=== PATIENT | male | born 1945 | race Caucasian/White ===

== ENCOUNTER 2019-09-29 00:35 | Emergency (ER) | payer MEDICARE, OTHER ==
--- NOTE | 2019-09-29 02:12 | EDM.PDOC ---
ED HPI GENERAL MEDICAL PROBLEM - General Chief Complaint: Genitourinary Problem Stated Complaint: POST BLADDER SURGERY/BLOOD IN URINE Time Seen by Provider: 09/29/19 01:15 Source of Information: Reports: Patient, RN Notes Reviewed History Limitations: Reports: No Limitations, Intoxication - History of Present Illness INITIAL COMMENTS - FREE TEXT/NARRATIVE: ED with c/o urinary frequency pain, burning, blood in urine. Up every hour last night. Blood just noticed tonight. Urine pink tinged. Feels like emmptying but urge fto go immediately after voiding. No fever chills or back pain. Recent cystoscopy on Monday for microscopic hematuria. No hx of previous UTI's. No nausea or vomiting. Bladder Pain Score (Numeric/FACES): 7 - Related Data Allergies Allergy/AdvReac Type Severity Reaction Status Date / Time atorvastatin calcium Allergy Cannot Verified 09/29/19 01:02 [From Lipitor] Remember levofloxacin [From Levaquin] Allergy Rash Verified 09/29/19 01:02 pantoprazole sodium Allergy Cannot Verified 09/29/19 01:02 [From Protonix] Remember Penicillins Allergy Cannot Verified 09/29/19 01:02 Remember pravastatin [From Pravachol] Allergy Muscle Verified 09/29/19 01:02 Aches Shellfish Allergy Cannot Uncoded 09/29/19 01:02 Remember Home Meds: Home Meds Aspirin [Sarah Chewable] 81 mg PO DAILY 04/18/13 [History] Chlorthalidone 25 mg PO DAILY 04/18/13 [History] Insulin Glargine,Hum.Rec.Anlog [Lantus Solostar] 42 units SQ BID 04/18/13 [ History] Levothyroxine 137 mcg PO DAILY 04/18/13 [History] Losartan [Cozaar] 100 mg PO DAILY 04/18/13 [History] Metoprolol Succinate [Toprol XL 100mg] 100 mg PO DAILY 04/18/13 [History] metFORMIN HCl [Metformin HCl] 750 mg PO BIDMEALS 10/05/18 [History] Dulaglutide [Trulicity] 1.5 mg SQ WEEKLY 09/29/19 [History] Famotidine [Pepcid] 20 mg PO BID 09/29/19 [History] Glimepiride [Amaryl] 4 mg PO ACBREAKFAST 09/29/19 [History] Simvastatin 20 mg PO BEDTIME 09/29/19 [History] calcitrioL [Rocaltrol] 0.25 mcg PO DAILY 09/29/19 [History] Social & Family History - Family History Family Medical History: Noncontributory - Tobacco Use Smoking Status *Q: Never Smoker Second Hand Smoke Exposure: No - Caffeine Use Caffeine Use: Reports: None - Recreational Drug Use Recreational Drug Use: No ED ROS GENERAL - Review of Systems Review Of Systems: Comprehensive ROS is negative, except as noted in HPI. ED EXAM, GI/ABD - Physical Exam Exam: See Below Exam Limited By: No Limitations General Appearance: Alert, No Apparent Distress Eyes: Bilateral: Normal Appearance Ears: Normal External Exam, Normal Canal, Normal TMs Nose: Normal Inspection Throat/Mouth: Normal Inspection, Normal Lips, Normal Voice Head: Atraumatic, Normocephalic Neck: Normal Inspection Respiratory/Chest: No Respiratory Distress, Lungs Clear, Normal Breath Sounds Cardiovascular: Regular Rate, Rhythm, No Edema GI/Abdominal Exam: Normal Bowel Sounds, Soft, Non-Tender Back Exam: No: CVA Tenderness (L), CVA Tenderness (R) Extremities: Normal Inspection Neurological: Alert, Oriented, Normal Cognition Psychiatric: Normal Affect Skin Exam: Warm, Dry, Intact Course - Vital Signs Last Recorded V/S: Last Vital Signs Temp 98.8 F 09/29/19 01:02 Pulse 75 09/29/19 01:02 Resp 16 09/29/19 01:02 BP 182/72 H 09/29/19 01:02 Pulse Ox 95 09/29/19 01:02 - Orders/Labs/Meds Orders: Active Orders 24 hr Category Date Time Status CULTURE URINE [RM] Urgent Lab 09/29/19 02:04 Received Labs: Laboratory Tests 09/29/19 Range/Units 02:04 Urine Color Brown (YELLOW) Urine Appearance Turbid (CLEAR) Urine pH 5.0 (5.0-9.0) Ur Specific [place] 1.020 (1.005-1.030) Urine Protein >=300 H (NEGATIVE) Urine Glucose (UA) Negative (NEGATIVE) Urine Ketones Trace H (NEGATIVE) Urine Occult Blood Large H (NEGATIVE) Urine Nitrite Negative (NEGATIVE) Urine Bilirubin Moderate H (NEGATIVE) Urine Urobilinogen 1.0 (0.2-1.0) mg/dL Ur Leukocyte Esterase Large H (NEGATIVE) Urine RBC 75-100 H /HPF Urine WBC Packed H (0-5/HPF) /HPF Ur Epithelial Cells Moderate H (NOT SEEN) /HPF Urine Bacteria Many H (0-FEW/HPF) /HPF Meds: Medications Discontinued Medications Generic Name Dose Route Start Last Admin Trade Name Loida PRN Reason Stop Dose Admin Nitrofurantoin Macrocrystals 100 mg 09/29/19 02:22 09/29/19 02:26 Macrobid PO 09/29/19 02:23 100 mg ONETIME ONE Administration Phenazopyridine HCl 190 mg 09/29/19 02:20 09/29/19 02:26 Urinary Pain Relief PO 09/29/19 02:21 190 mg ONETIME ONE Administration Departure - Departure Time of Disposition: 02:24 Disposition: Home, Self-Care 01 Condition: Good Clinical Impression: UTI, Urinary tract infectious disease - Discharge Information *PRESCRIPTION DRUG MONITORING PROGRAM REVIEWED*: No *COPY OF PRESCRIPTION DRUG MONITORING REPORT IN PATIENT ROMA: No Instructions: Urinary Tract Infection, Adult Forms: ED Department Discharge Additional Instructions: macrobid 100mg one twice daily for 10 days pyridium 200mg every 8 hours as needed for bladder spasm increase fluids follow up if symptoms worsen fever, chills nausea, weakness Sepsis Event Note (ED) - Evaluation Sepsis Screening Result: No Definite Risk - Focused Exam Vital Signs: Vital Signs Temp Pulse Resp BP Pulse Ox 09/29/19 01:02 98.8 F 75 16 182/72 H 95 - My Orders Last 24 Hours: My Active Orders 09/29/19 02:04 CULTURE URINE [RM] Urgent - Assessment/Plan Last 24 Hours: My Active Orders 09/29/19 02:04 CULTURE URINE [RM] Urgent
[2019-09-29] MEDS ORDERED: Phenazopyridine 95 MG Tab PO ONE (02:20)
[2019-09-29] MEDS ORDERED: Nitrofurantoin Monohydrate/Macrocrystalline 100 MG Cap PO ONE (02:22)
== END 2019-09-29 02:31 | disposition home or self-care (01) ==
LOC: DL.ED 00:35
DX: N39.0 Urinary tract infection, site not specified (principal); Z88.8 Allergy status to other drugs, medicaments and biological substances; Z88.0 Allergy status to penicillin; Z91.013 Allergy to seafood; Z79.82 Long term (current) use of aspirin; Z79.899 Other long term (current) drug therapy
CPT/HCPCS: 81001; 87086; 87088; 87186; 99283; A9270

== ENCOUNTER 2019-12-10 00:47 | Emergency (ER) | payer MEDICARE, OTHER ==
--- NOTE | 2019-12-10 01:26 | CR ---
PROCEDURE INFORMATION: Exam: XR Chest, 1 View Exam date and time: 12/10/2019 1:01 AM Age: 74 years old Clinical indication: Chest pain TECHNIQUE: Imaging protocol: XR of the chest Views: 1 view. COMPARISON: No relevant prior studies available. FINDINGS: Lungs: Mild right perihilar and right lung base opacification. The right upper lung and left lung are clear. Pleural space: No pneumothorax. No significant pleural effusion. Heart/Mediastinum: Mild cardiomegaly. Other: Multiple monitoring leads overlie the thorax. Bones/joints: Moderate thoracic spondylosis. IMPRESSION: Mild right perihilar and right lung base opacification. Consider asymmetric edema and/or infiltrate. Correlate clinically
[2019-12-10 01:32] LABS: ANION GAP 11.9 mEq/L (7-13); CHLORIDE,CL 105 mmol/L (98-107); SODIUM,NA 144 mmol/L (136-145)
--- NOTE | 2019-12-10 01:32 | EDM.PDOC ---
ED HPI GENERAL MEDICAL PROBLEM - General Chief Complaint: Respiratory Problem Stated Complaint: SHORTNESS OF BREATH Time Seen by Provider: 12/10/19 01:15 Source of Information: Reports: Patient, RN, RN Notes Reviewed History Limitations: Reports: No Limitations - History of Present Illness INITIAL COMMENTS - FREE TEXT/NARRATIVE: Patient presents to ER with complaint of shortness of breath. Patient states he awakens in the night startled and cannot catch his breath. Patient states this is been going on for quite some time, but tonight he had more difficulty catching his breath, and became more anxious about it. 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 Gallbladder and appendix were removed at that time as well. Patient states he has been having decent bowel movements, and appetite has been good. Patient denies shortness of breath on a regular basis. Patient states he has been up and ambulating frequently, but seems to get winded more easily. Patient states he thinks he has sleep apnea, but has never been tested. Patient does state his sleeping pattern has become worse since the surgery. Patient denies chest pains, or pains anywhere. Patient states he has been feeling well since his surgery. Patient states once he settled down, he was able to breathe easier. Onset: Gradual Associated Symptoms: Reports: No Other Symptoms - Related Data Allergies Allergy/AdvReac Type Severity Reaction Status Date / Time atorvastatin calcium Allergy Cannot Verified 12/10/19 01:09 [From Lipitor] Remember levofloxacin [From Levaquin] Allergy Rash Verified 12/10/19 01:09 pantoprazole sodium Allergy Cannot Verified 12/10/19 01:09 [From Protonix] Remember Penicillins Allergy Cannot Verified 12/10/19 01:09 Remember pravastatin [From Pravachol] Allergy Muscle Verified 12/10/19 01:09 Aches Shellfish Allergy Cannot Uncoded 12/10/19 01:09 Remember Home Meds: Home Meds Aspirin [Sarah Chewable] 81 mg PO DAILY 04/18/13 [History] Chlorthalidone 25 mg PO DAILY 04/18/13 [History] Insulin Glargine,Hum.Rec.Anlog [Lantus Solostar] 38 units SQ BID 04/18/13 [History] Levothyroxine 137 mcg PO DAILY 04/18/13 [History] Losartan [Cozaar] 100 mg PO DAILY 04/18/13 [History] Metoprolol Succinate [Toprol XL 100mg] 100 mg PO DAILY 04/18/13 [History] metFORMIN HCl [Metformin HCl] 750 mg PO BIDMEALS 10/05/18 [History] Dulaglutide [Trulicity] 1.5 mg SQ WEEKLY 09/29/19 [History] Famotidine [Pepcid] 20 mg PO BID 09/29/19 [History] Glimepiride [Amaryl] 4 mg PO ACBREAKFAST 09/29/19 [History] Simvastatin 20 mg PO BEDTIME 09/29/19 [History] calcitrioL [Rocaltrol] 0.25 mcg PO DAILY 09/29/19 [History] oxyCODONE 1 tab PO Q4H 12/10/19 [History] Past Medical History Cardiovascular History: 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 ED EXAM, GENERAL - Physical Exam Exam: See Below Exam Limited By: No Limitations General Appearance: Alert, WD/WN, No Apparent Distress, Anxious Eye Exam: Bilateral Eye: EOMI, Normal Inspection Ears: Normal External Exam, Hearing Grossly Normal Nose: Normal Inspection Throat/Mouth: Normal Inspection, Normal Voice, No Airway Compromise Head: Atraumatic, Normocephalic Neck: Normal Inspection, Supple, Non-Tender, Full Range of Motion Respiratory/Chest: No Respiratory Distress, No Accessory Muscle Use, Chest Non- Tender, Crackles (Bases bilaterally) Cardiovascular: Normal Peripheral Pulses, Regular Rate, Rhythm, No Edema, No Gallop, No JVD, No Rub, Systolic Murmur Peripheral Pulses: 2+: Radial (L), Radial (R) GI/Abdominal: Normal Bowel Sounds, Soft, Tender, Other (Healing incision from 13 November 2019 abdominal surgery) (Male) Exam: Deferred Rectal (Males) Exam: Deferred Back Exam: Normal Inspection, Full Range of Motion Extremities: Normal Inspection, Normal Range of Motion, Non-Tender, Normal Capillary Refill, No Pedal Edema Neurological: Alert, Oriented, CN II-XII Intact, Normal Cognition, Normal Gait, Normal Reflexes, No Motor/Sensory Deficits Psychiatric: Normal Affect, Normal Mood, Anxious Skin Exam: Warm, Dry, Intact, Normal Color, No Rash Lymphatic: No Adenopathy Course - Vital Signs Last Recorded V/S: Last Vital Signs Temp 97.4 F 12/10/19 01:01 Pulse 74 12/10/19 01:01 Resp 18 12/10/19 01:01 BP 153/62 H 12/10/19 01:01 Pulse Ox 98 12/10/19 01:01 - Orders/Labs/Meds Orders: Active Orders 24 hr Category Date Time Status EKG Documentation Completion [RC] STAT Care 12/10/19 00:58 Active Labs: Laboratory Tests 12/10/19 12/10/19 Range/Units 01:03 01:03 WBC 10.8 H (5.0-10.0) 10^3/uL RBC 4.35 L (4.6-6.2) 10^6/uL Hgb 13.3 L (14.0-18.0) g/dL Hct 40.3 (40.0-54.0) % MCV 92.6 (80-100) fL MCH 30.6 (27.0-34.0) pg MCHC 33.0 (33.0-35.0) g/dL Plt Count 201 (150-450) 10^3/uL Neut % (Auto) 51.9 (42.2-75.2) % Lymph % (Auto) 35.0 (20.5-50.1) % [place] % (Auto) 8.5 H (2-8) % Eos % (Auto) 4.3 H (1.0-3.0) % Baso % (Auto) 0.3 (0.0-1.0) % Sodium 144 (136-145) mmol/L Potassium 3.9 (3.5-5.1) mmol/L Chloride 105 (98-107) mmol/L Carbon Dioxide 31 (21-32) mmol/L Anion Gap 11.9 (7-13) mEq/L BUN 33 H (7-18) mg/dL Creatinine 1.68 H (0.70-1.30) mg/dL Est Cr Clr Drug Dosing 41.06 mL/min Estimated GFR (MDRD) 40 BUN/Creatinine Ratio 19.6 (No establ ref range) Glucose 90 (74-99) mg/dL Calcium 8.9 (8.5-10.1) mg/dL Total Bilirubin 0.5 (0.2-1.0) mg/dL AST 15 (15-37) U/L ALT 28 (16-63) U/L Alkaline Phosphatase 70 (46-116) U/L Troponin I < 0.017 (0.000-0.056) ng/mL B-Natriuretic Peptide 18 (0-100) pg/ml Total Protein 7.4 (6.4-8.2) g/dL Albumin 3.8 (3.4-5.0) g/dL Globulin 3.6 Albumin/Globulin Ratio 1.1 - Radiology Interpretation Free Text/Narrative:: Chest xray: PROCEDURE INFORMATION: Exam: XR Chest, 1 View Exam date and time: 12/10/2019 1:01 AM Age: 74 years old Clinical indication: Chest pain TECHNIQUE: Imaging protocol: XR of the chest Views: 1 view. COMPARISON: No relevant prior studies available. FINDINGS: Lungs: Mild right perihilar and right lung base opacification. The right upper lung and left lung are clear. Pleural space: No pneumothorax. No significant pleural effusion. Heart/Mediastinum: Mild cardiomegaly. Other: Multiple monitoring leads overlie the thorax. Bones/joints: Moderate thoracic spondylosis. IMPRESSION: Mild right perihilar and right lung base opacification. Consider asymmetric edema and/or infiltrate. Correlate clinically Thank you for allowing us to participate in the care of your patient. Dictated and Authenticated by: Johanny Faulkner MD 12/10/2019 1:26 AM Central Time ([place] & [place]) See rad report Departure - Departure Time of Disposition: 01:44 Disposition: Home, Self-Care 01 Condition: Fair Clinical Impression: Anxiety Pneumonia Qualifiers: Pneumonia type: due to unspecified organism Laterality: bilateral Lung location: lower lobe of lung Qualified Code(s): J18.9 - Pneumonia, unspecified organism - Discharge Information *PRESCRIPTION DRUG MONITORING PROGRAM REVIEWED*: No *COPY OF PRESCRIPTION DRUG MONITORING REPORT IN PATIENT ROMA: No Instructions: Shortness of Breath, Adult, [id number], Community-Acquired Pneumonia, Adult, [id number], Living With Anxiety Forms: ED Department Discharge Additional Instructions: Call your primary care provider's office tomorrow to discuss sleep study Rx: Azithromycin Return to the ER with any worsening of problems Follow-up with your primary care provider Sepsis Event Note (ED) - Evaluation Sepsis Screening Result: No Definite Risk - Focused Exam Vital Signs: Vital Signs Temp Pulse Resp BP Pulse Ox 12/10/19 01:01 97.4 F 74 18 153/62 H 98 - My Orders Last 24 Hours: My Active Orders 12/10/19 00:58 EKG Documentation Completion [RC] STAT - Assessment/Plan Last 24 Hours: My Active Orders 12/10/19 00:58 EKG Documentation Completion [RC] STAT
== END 2019-12-10 01:50 | disposition home or self-care (01) ==
LOC: DL.ED 00:47
DX: J18.9 Pneumonia, unspecified organism (principal); F41.9 Anxiety disorder, unspecified; Z88.1 Allergy status to other antibiotic agents; Z88.8 Allergy status to other drugs, medicaments and biological substances; Z88.0 Allergy status to penicillin; Z91.013 Allergy to seafood; Z79.82 Long term (current) use of aspirin; Z79.899 Other long term (current) drug therapy; Z87.891 Personal history of nicotine dependence
CPT/HCPCS: 36415; 71045; 80053; 83880; 84484; 85025; 93005; 99285-25

== ENCOUNTER 2019-12-10 08:46 | Emergency (ER) | payer MEDICARE, OTHER ==
--- NOTE | 2019-12-10 09:30 | EDM.PDOC ---
ED HPI GENERAL MEDICAL PROBLEM - General Chief Complaint: Respiratory Problem Time Seen by Provider: 12/10/19 09:55 Source of Information: Reports: Patient History Limitations: Reports: No Limitations - History of Present Illness INITIAL COMMENTS - FREE TEXT/NARRATIVE: This 74 yo male patient reports to the ED due to increased shortness of breath. The patient was seen in the ED at 0100 this morning with shortness of breath, was diagnosed with pneumonia and discharged with antibiotics. The patient called Dr. Shipman's office this morning reporting continued shortness of breath and was advised to come back to the ED. Dr. Shipman called the ED prior to the patient's arrival with concerns that the patient may have a PE due to having surgery about 2 weeks ago for a tumor on his small intestine (removed appendix and gallbladder during the surgery). The patient reports he has been noticing increased shortness of breath during the night when he wakes up from sleep. The patient denies any shortness of breath in the daytime and no increased shortness of breath with exertion. The patient reports he was advised that he may have some sleep apnea during the visit in [facility]. The patient does not have a CPAP. Onset: Unknown/Unsure Duration: Day(s):, Intermittent (During sleep) Location: Reports: Chest Quality: Reports: Other Severity: Moderate Improves with: Reports: None Worsens with: Reports: None Context: Reports: Other Associated Symptoms: Reports: Shortness of Breath - Related Data Allergies Allergy/AdvReac Type Severity Reaction Status Date / Time atorvastatin calcium Allergy Cannot Verified 12/10/19 09:30 [From Lipitor] Remember levofloxacin [From Levaquin] Allergy Rash Verified 12/10/19 09:30 pantoprazole sodium Allergy Cannot Verified 12/10/19 09:30 [From Protonix] Remember Penicillins Allergy Cannot Verified 12/10/19 09:30 Remember pravastatin [From Pravachol] Allergy Muscle Verified 12/10/19 09:30 Aches Shellfish Allergy Cannot Uncoded 12/10/19 01:09 Remember Home Meds: Home Meds Aspirin [Sarah Chewable] 81 mg PO DAILY 04/18/13 [History] Chlorthalidone 25 mg PO DAILY 04/18/13 [History] Insulin Glargine,Hum.Rec.Anlog [Lantus Solostar] 24 units SQ BID 04/18/13 [History] Levothyroxine 137 mcg PO DAILY 04/18/13 [History] Losartan [Cozaar] 100 mg PO DAILY 04/18/13 [History] Metoprolol Succinate [Toprol XL 100mg] 100 mg PO DAILY 04/18/13 [History] metFORMIN HCl [Metformin HCl] 750 mg PO BIDMEALS 10/05/18 [History] Dulaglutide [Trulicity] 1.5 mg SQ WEEKLY 09/29/19 [History] Famotidine [Pepcid] 20 mg PO BID 09/29/19 [History] Glimepiride [Amaryl] 4 mg PO ACBREAKFAST 09/29/19 [History] Simvastatin 20 mg PO BEDTIME 09/29/19 [History] calcitrioL [Rocaltrol] 0.25 mcg PO DAILY 09/29/19 [History] oxyCODONE 1 tab PO Q4H 12/10/19 [History] Past Medical History Cardiovascular History: Reports: Heart Murmur Gastrointestinal History: Reports: Other (See Below) Other Gastrointestinal History: Colon Ca Oncologic (Cancer) History: Reports: Colon - Past Surgical History GI Surgical History: Reports: Colon Social & Family History - Family History Family Medical History: Noncontributory - Caffeine Use Caffeine Use: Reports: None ED ROS GENERAL - Review of Systems Review Of Systems: Comprehensive ROS is negative, except as noted in HPI. ED EXAM, GENERAL - Physical Exam Exam: See Below Exam Limited By: No Limitations General Appearance: Alert, WD/WN, Anxious, Moderate Distress Eye Exam: Bilateral Eye: EOMI, Normal Inspection, PERRL Ears: Other (Bilateral hearing aids not removed) Nose: Normal Inspection, Normal Mucosa, No Blood Throat/Mouth: Normal Inspection, Normal Lips, Normal Teeth, Normal Gums, Normal Oropharynx, Normal Voice, No Airway Compromise Head: Atraumatic, Normocephalic Neck: Normal Inspection, Supple, Non-Tender, Full Range of Motion Respiratory/Chest: No Respiratory Distress, Lungs Clear, Normal Breath Sounds, No Accessory Muscle Use, Chest Non-Tender Cardiovascular: Normal Peripheral Pulses, Regular Rate, Rhythm, No Edema, No Gallop, No JVD, No Murmur, No Rub GI/Abdominal: Normal Bowel Sounds, Soft, Non-Tender, No Organomegaly, No Distention, No Abnormal Bruit, No Mass (Male) Exam: Deferred Rectal (Males) Exam: Deferred Back Exam: Normal Inspection, Full Range of Motion, NT Extremities: Normal Inspection, Normal Range of Motion, Non-Tender, Normal Capillary Refill, No Pedal Edema Neurological: Alert, Oriented, CN II-XII Intact, Normal Cognition, Normal Gait, Normal Reflexes, No Motor/Sensory Deficits Psychiatric: Normal Affect, Normal Mood Skin Exam: Warm, Dry, Intact, Normal Color, No Rash Lymphatic: No Adenopathy Course - Vital Signs Last Recorded V/S: Last Vital Signs Temp 36.7 C 12/10/19 09:25 Pulse 85 12/10/19 09:25 Resp 20 12/10/19 09:25 BP 144/55 H 12/10/19 09:25 Pulse Ox 99 12/10/19 09:25 - Orders/Labs/Meds Orders: Active Orders 24 hr Category Date Time Status EKG Documentation Completion [RC] STAT Care 12/10/19 08:32 Active Labs: Laboratory Tests 12/10/19 12/10/19 12/10/19 Range/Units 08:53 09:38 09:38 WBC 8.1 (5.0-10.0) 10^3/uL RBC 4.62 (4.6-6.2) 10^6/uL Hgb 14.1 (14.0-18.0) g/dL Hct 41.9 (40.0-54.0) % MCV 90.7 (80-100) fL MCH 30.5 (27.0-34.0) pg MCHC 33.7 (33.0-35.0) g/dL Plt Count 199 (150-450) 10^3/uL Neut % (Auto) 70.1 (42.2-75.2) % Lymph % (Auto) 21.0 (20.5-50.1) % [place] % (Auto) 6.3 (2-8) % Eos % (Auto) 2.4 (1.0-3.0) % Baso % (Auto) 0.2 (0.0-1.0) % PT (9.0-12.0) SEC INR (0.9-1.2) D-Dimer, Quantitative (0-400) ng/mL Sodium 142 (136-145) mmol/L Potassium 3.6 (3.5-5.1) mmol/L Chloride 102 (98-107) mmol/L Carbon Dioxide 25 (21-32) mmol/L Anion Gap 18.6 H (7-13) mEq/L BUN 31 H (7-18) mg/dL Creatinine 1.61 H (0.70-1.30) mg/dL Est Cr Clr Drug Dosing 42.84 mL/min Estimated GFR (MDRD) 42 BUN/Creatinine Ratio 19.3 (No establ ref range) Glucose 160 H (74-99) mg/dL Lactic Acid (0.4-2.0) mmol/L Calcium 9.1 (8.5-10.1) mg/dL Total Bilirubin 0.7 (0.2-1.0) mg/dL AST 18 (15-37) U/L ALT 31 (16-63) U/L Alkaline Phosphatase 68 (46-116) U/L Troponin I < 0.017 (0.000-0.056) ng/mL Total Protein 7.7 (6.4-8.2) g/dL Albumin 3.9 (3.4-5.0) g/dL Globulin 3.8 Albumin/Globulin Ratio 1.0 COVID-19 (NILDA) Negative (NEGATIVE) 12/10/19 12/10/19 Range/Units 09:38 09:38 WBC (5.0-10.0) 10^3/uL RBC (4.6-6.2) 10^6/uL Hgb (14.0-18.0) g/dL Hct (40.0-54.0) % MCV (80-100) fL MCH (27.0-34.0) pg MCHC (33.0-35.0) g/dL Plt Count (150-450) 10^3/uL Neut % (Auto) (42.2-75.2) % Lymph % (Auto) (20.5-50.1) % [place] % (Auto) (2-8) % Eos % (Auto) (1.0-3.0) % Baso % (Auto) (0.0-1.0) % PT 10.1 (9.0-12.0) SEC INR 1.1 (0.9-1.2) D-Dimer, Quantitative 1750 H (0-400) ng/mL Sodium (136-145) mmol/L Potassium (3.5-5.1) mmol/L Chloride (98-107) mmol/L Carbon Dioxide (21-32) mmol/L Anion Gap (7-13) mEq/L BUN (7-18) mg/dL Creatinine (0.70-1.30) mg/dL Est Cr Clr Drug Dosing mL/min Estimated GFR (MDRD) BUN/Creatinine Ratio (No establ ref range) Glucose (74-99) mg/dL Lactic Acid 3.2 H* (0.4-2.0) mmol/L Calcium (8.5-10.1) mg/dL Total Bilirubin (0.2-1.0) mg/dL AST (15-37) U/L ALT (16-63) U/L Alkaline Phosphatase (46-116) U/L Troponin I (0.000-0.056) ng/mL Total Protein (6.4-8.2) g/dL Albumin (3.4-5.0) g/dL Globulin Albumin/Globulin Ratio COVID-19 (NILDA) (NEGATIVE) Meds: Medications Discontinued Medications Generic Name Dose Route Start Last Admin Trade Name Freq PRN Reason Stop Dose Admin Iopamidol 100 ml 12/10/19 10:27 12/10/19 11:13 Isovue-370 (76%) IVPUSH 12/10/19 10:28 75 ml ONETIME ONE Administration Departure - Departure Time of Disposition: 12:38 Disposition: Home, Self-Care 01 Condition: Fair Clinical Impression: Shortness of breath, Nocturnal dyspnea - Discharge Information *PRESCRIPTION DRUG MONITORING PROGRAM REVIEWED*: Not Applicable *COPY OF PRESCRIPTION DRUG MONITORING REPORT IN PATIENT ROMA: Not Applicable Instructions: Shortness of Breath, Adult Forms: ED Department Discharge Care Plan Goals: The patient was advised of the examination, lab, EKG and CT results during the visit. The patient was encouraged to follow-up with his primary care facility for a sleep study. The patient should continue with his current medications as prescribed. If the patient has any additional symptoms or concerns, the patient should either return to the emergency department or visit his primary care facility. Sepsis Event Note (ED) - Focused Exam Vital Signs: Vital Signs Temp Pulse Resp BP Pulse Ox 12/10/19 09:25 36.7 C 85 20 144/55 H 99 - My Orders Last 24 Hours: My Active Orders 12/10/19 08:32 EKG Documentation Completion [RC] STAT - Assessment/Plan Last 24 Hours: My Active Orders 12/10/19 08:32 EKG Documentation Completion [RC] STAT
[2019-12-10 10:09] LABS: ANION GAP 18.6 mEq/L (7-13); CHLORIDE,CL 102 mmol/L (98-107); SODIUM,NA 142 mmol/L (136-145)
[2019-12-10] MEDS ORDERED: Iopamidol 755 Mg/ML 100 ML Bottle IVPUSH ONE (10:27)
--- NOTE | 2019-12-10 12:30 | CT ---
PROCEDURE INFORMATION: Exam: CT Chest With Contrast Exam date and time: 12/10/2019 10:55 AM Age: 74 years old Clinical indication: Shortness of breath; Prior surgery; Surgery date: <1 month; Surgery type: Colon resection; Patient HX: Lung and colon CA TECHNIQUE: Imaging protocol: Computed tomography of the chest with intravenous contrast. Radiation optimization: All CT scans at this facility use at least one of these dose optimization techniques: automated exposure control; mA and/or kV adjustment per patient size (includes targeted exams where dose is matched to clinical indication); or iterative reconstruction. Contrast material: ISOVUE 370; Contrast volume: 75 ml; Contrast route: INTRAVENOUS (IV); COMPARISON: 1. CR Chest 1V Frontal 12/10/2019 1:01 AM 2. MR - Abdomen w wo Cont 09/16/2019 7:52:[address] - Abdomen Pelvis w wo Cont 09/05/2019 8:13:[address] - Soft Tissue Neck w Cont 10/09/2018 1:23:55 PM FINDINGS: Lungs: There is continued discoid atelectasis or scar in the left lower lobe with mild associated bronchiectasis. This may represent traction bronchiectasis. There are multiple small 1-3 mm subpleural pulmonary nodules in the left lower lobe peripherally, a few of which may be new since 09/05/2019. Pleural space: Unremarkable. No pneumothorax. No pleural effusion. Heart: There are calcifications at the aortic valve and less so at the mitral valve annulus. Pulmonary arteries: Central pulmonary arteries are patent and unremarkable. Aorta: Mildly tortuous thoracic aorta without aneurysm or dissection. Lymph nodes: Unremarkable. No enlarged lymph nodes. Liver: There is a 5.7 x 4.3 cm hypodense lesion with somewhat targetoid appearance, with central more pronounced decreased density. However, Hounsfield units range from -2 to 10 suggesting either a cystic or necrotic lesion. Curvilinear densities at the medial margin of this lesion are new. Question embolization coils versus dystrophic calcification. This could reflect the prior hypervascular lesion post treatment. Two additional lesions in the right posterior superior liver are hypodense measuring 2.5 and 2.1 cm correspond to prior smaller hypervascular lesions on the CT from 09/05/2019. The 2.5 cm lesion has Hounsfield units less than 20, and the 2.1 cm lesion has Hounsfield units of 25. These are of uncertain etiology, not clearly evident on pre contrast images from CT abdomen and pelvis 09/05/2019. Bones/joints: No acute osseous abnormality. 7 mm corticated body anterior to the right humeral head. Degenerative changes in the thoracic and lower cervical spine. Soft tissues: Unremarkable. IMPRESSION: 1. 1 mm soft tissue density subpleural pulmonary nodules in the left lower lobe, a few of which are likely new compared to 09/05/2019. These nodules are indeterminate. Fleischner follow up recommendations for incidental nodules are not indicated. Follow up per patient's medical condition. 2. Three hypodense hepatic lesions at the site of the prior smaller hypervascular lesions in the right liver, 1 which has curvilinear radiodense structures at its medial margin which may represent embolization coils or dystrophic calcification. These lesions are indeterminate, but the possibility of treated metastases is raised. Recommend correlation with patient history and procedures. Consider dedicated liver MR or dedicated liver CT for further characterization. 3. Traction bronchiectasis in the left lower lobe with adjacent discoid atelectasis or scar.
== END 2019-12-10 13:00 | disposition home or self-care (01) ==
LOC: DL.ED 08:46
DX: R06.02 Shortness of breath (principal); Z20.828 Contact with and (suspected) exposure to other viral communicable diseases; Z88.8 Allergy status to other drugs, medicaments and biological substances; Z88.0 Allergy status to penicillin; Z88.1 Allergy status to other antibiotic agents; Z91.013 Allergy to seafood; Z79.82 Long term (current) use of aspirin; Z79.899 Other long term (current) drug therapy
CPT/HCPCS: 36415; 71260; 80053; 83605; 84484; 85025; 85379; 85610; 93005; 99285; Q9967; U0002; 99283

== ENCOUNTER 2021-02-21 08:57 | Emergency (ER) | payer MEDICARE, OTHER ==
[2021-02-21] MEDS ORDERED: Lidocaine 5% Oint 35.44 GM Tube TOP ONE (09:38)
[2021-02-21] MEDS ORDERED: Dexamethasone 4 MG/ML SDV IM ONE (09:39)
--- NOTE | 2021-02-21 09:47 | EDM.PDOC ---
Scribed by Jeri Ferrara 02/21/21 0935 for Felix Rowe MD ED HPI GENERAL MEDICAL PROBLEM - General Chief Complaint: Back Pain or Injury Stated Complaint: WRENCHED BACK Time Seen by Provider: 02/21/21 09:17 Source of Information: Reports: Patient, RN, RN Notes Reviewed History Limitations: Reports: No Limitations - History of Present Illness INITIAL COMMENTS - FREE TEXT/NARRATIVE: Patient presents to ED by POV with complaint of twisting wrong x1 week ago, went to chiropractor and felt better until he twisted wrong again last night. The pain was in lower back and on the right side. He denies fall, lifting or any other injury. Pt states that if he rotates or moves that right low back has a sudden "catch" with sharp pain and severe muscle spasms. Denies radiating pain, saddle area numbness, loss of bowel or bladder control, or motor weakness. Onset: Gradual Duration: Getting Worse Location: Reports: Back Quality: Reports: Ache, Same as Previous Episode Severity: Severe Improves with: Reports: Immobilization, Rest Worsens with: Reports: Movement Associated Symptoms: Reports: No Other Symptoms Lower Back Pain Score (Numeric/FACES): 10 - Related Data Allergies Allergy/AdvReac Type Severity Reaction Status Date / Time atorvastatin calcium Allergy Cannot Verified 02/21/21 09:20 [From Lipitor] Remember levofloxacin [From Levaquin] Allergy Rash Verified 02/21/21 09:20 pantoprazole sodium Allergy Cannot Verified 02/21/21 09:20 [From Protonix] Remember Penicillins Allergy Cannot Verified 02/21/21 09:20 Remember pravastatin [From Pravachol] Allergy Muscle Verified 02/21/21 09:20 Aches Shellfish Allergy Cannot Uncoded 02/21/21 09:20 Remember Home Meds: Home Meds Aspirin [Sarah Chewable] 81 mg PO DAILY 04/18/13 [History] Chlorthalidone 25 mg PO DAILY 04/18/13 [History] Insulin Glargine,Hum.Rec.Anlog [Lantus Solostar] 24 units SQ BID 04/18/13 [History] Levothyroxine 137 mcg PO DAILY 04/18/13 [History] Losartan [Cozaar] 100 mg PO DAILY 04/18/13 [History] Metoprolol Succinate [Toprol XL 100mg] 100 mg PO DAILY 04/18/13 [History] metFORMIN HCl [Metformin HCl] 750 mg PO BIDMEALS 10/05/18 [History] Dulaglutide [Trulicity] 1.5 mg SQ WEEKLY 09/29/19 [History] Famotidine [Pepcid] 20 mg PO BID 09/29/19 [History] Glimepiride [Amaryl] 4 mg PO ACBREAKFAST 09/29/19 [History] Simvastatin 20 mg PO BEDTIME 09/29/19 [History] calcitrioL [Rocaltrol] 0.25 mcg PO DAILY 09/29/19 [History] oxyCODONE 1 tab PO Q4H 12/10/19 [History] Past Medical History Cardiovascular History: Reports: Heart Murmur Respiratory History: Reports: None Gastrointestinal History: Reports: Other (See Below) Other Gastrointestinal History: Colon Ca Genitourinary History: Reports: None Musculoskeletal History: Reports: Back Pain, Chronic, Osteoarthritis Neurological History: Reports: None Psychiatric History: Reports: None Endocrine/Metabolic History: Reports: Diabetes, Type II, Hypothyroidism Hematologic History: Reports: None Immunologic History: Reports: None Oncologic (Cancer) History: Reports: Colon Dermatologic History: Reports: None - Infectious Disease History Infectious Disease History: Reports: None - Past Surgical History GI Surgical History: Reports: Colon, Small Bowel Social & Family History - Family History Family Medical History: No Pertinent Family History - Caffeine Use Caffeine Use: Reports: None - Living Situation & Occupation Occupation: Retired ED ROS GENERAL - Review of Systems Review Of Systems: Comprehensive ROS is negative, except as noted in HPI. ED EXAM,LOWER BACK PAIN/INJURY - Physical Exam Exam: See Below Exam Limited By: No Limitations General Appearance: Alert, WD/WN, No Apparent Distress Head: Atraumatic, Normocephalic Neck: Normal Inspection, Non-Tender, Full Range of Motion Respiratory/Chest: No Respiratory Distress Cardiovascular: Regular Rate, Rhythm GI/Abdominal: Normal Bowel Sounds, Soft, Non-Tender, Other (large vertical midline surgical scar) (Male) Exam: Deferred Rectal (Males) Exam: Deferred Back Exam: Decreased Range of Motion, Muscle Spasm (Right paraspinal lumbar region), Paraspinal Tenderness (Right lower lumbar region). No: CVA Tenderness (L), CVA Tenderness (R), Vertebral Tenderness Extremities: Normal Inspection, Normal Range of Motion, Non-Tender, No Pedal Edema, Normal Capillary Refill Neurological: Alert, Normal Mood/Affect, Normal Dorsiflexion, CN II-XII Intact, Normal Plantar Flexion, Normal Reflexes, No Motor/Sensory Deficits, Oriented x 3 Psychiatric: Normal Affect, Normal Mood Skin Exam: Warm, Dry, Intact, Normal Color, No Rash Course - Vital Signs Last Recorded V/S: Last Vital Signs Temp 97.8 F 02/21/21 09:20 Pulse 60 02/21/21 09:20 Resp 20 02/21/21 09:20 BP 146/60 H 02/21/21 09:20 Pulse Ox 95 02/21/21 09:20 - Orders/Labs/Meds Orders: Active Orders 24 hr Category Date Time Status Lumbar Spine 2 or 3V [CR] Stat Exams 02/21/21 09:22 Ordered Meds: Medications Discontinued Medications Generic Name Dose Route Start Last Admin Trade Name Иванq PRN Reason Stop Dose Admin Dexamethasone 8 mg 02/21/21 09:39 Dexamethasone 4 Mg/Ml Sdv IM 02/21/21 09:40 ONETIME ONE Diazepam 5 mg 02/21/21 09:37 Diazepam 10 Mg/2 Ml Syringe IM 02/21/21 09:38 ONETIME ONE Lidocaine HCl 30 gm 02/21/21 09:38 Lidocaine 5% Oint 35.44 Gm Tube TOP 02/21/21 09:39 ONETIME ONE - Radiology Interpretation Free Text/Narrative:: XR L-spine: no fractures, intervertebral lipping and spurring, see Rad. report. Departure - Departure Time of Disposition: 09:44 Disposition: Home, Self-Care 01 Condition: Good Clinical Impression: Lumbar paraspinal muscle spasm Acute low back pain Qualifiers: Back pain laterality: right Sciatica presence: without sciatica Qualified Code(s): M54.50 - Low back pain, unspecified - Discharge Information *PRESCRIPTION DRUG MONITORING PROGRAM REVIEWED*: No *COPY OF PRESCRIPTION DRUG MONITORING REPORT IN PATIENT ROMA: No Instructions: Acute Back Pain, Adult, Muscle Strain, [id number], Muscle Cramps and Spasms, [id number] Forms: ED Department Discharge Additional Instructions: Rx: Cyclobenzaprine 10mg Rx: Hydrocodone APAP 5mg/325mg *Do not drive while under the influence of either or these medications. Lidocaine Ointment 5% Apply to area of back pain or spasm every 4 to 6 hours as needed. Use heating pad or moist hot packs to area of back pain. Follow up in clinic with your primary doctor or chiropractor this week if needed. Sepsis Event Note (ED) - Focused Exam Vital Signs: Vital Signs Temp Pulse Resp BP Pulse Ox 02/21/21 09:20 97.8 F 60 20 146/60 H 95 - My Orders Last 24 Hours: My Active Orders 02/21/21 09:22 Lumbar Spine 2 or 3V [CR] Stat - Assessment/Plan Last 24 Hours: My Active Orders 02/21/21 09:22 Lumbar Spine 2 or 3V [CR] Stat I have read and agree with the documentation that has been completed regarding this visit. By signing this record, I attest that the documentation was completed in my physical presence and is an accurate record of the encounter.
--- NOTE | 2021-02-21 10:14 | CR ---
PROCEDURE INFORMATION: Exam: XR Lumbosacral Spine Exam date and time: 02/21/2021 9:33 AM Age: 75 years old Clinical indication: Other: Acute RT low back pain; Additional info: Acute right low back pain TECHNIQUE: Imaging protocol: XR of the lumbosacral spine. Views: 2 or 3 views. COMPARISON: CT Abdomen Pelvis w wo Cont 09/05/2019 8:13 AM FINDINGS: Bones/joints: Vertebral body heights are intact. Alignment is maintained. The pedicles appear intact. No acute fracture is identified. There is multilevel facet arthrosis, disc space narrowing and marginal osteophyte formation. Soft tissues: Grossly unremarkable. Vasculature: Atherosclerotic vascular calcifications are noted. IMPRESSION: Degenerative disk disease which could be better evaluated by means of MRI as clinically indicated.
== END 2021-02-21 09:55 | disposition home or self-care (01) ==
LOC: DL.ED 08:57
DX: M62.830 Muscle spasm of back (principal); E11.9 Type 2 diabetes mellitus without complications; E03.9 Hypothyroidism, unspecified; M19.90 Unspecified osteoarthritis, unspecified site; Z79.82 Long term (current) use of aspirin; Z79.4 Long term (current) use of insulin; Z79.899 Other long term (current) drug therapy; Z88.1 Allergy status to other antibiotic agents; Z88.0 Allergy status to penicillin; Z91.013 Allergy to seafood
CPT/HCPCS: 72100; 96372; 99283; A9270; J1100; J3360

== ENCOUNTER 2021-12-01 07:54 | Day surgery (SDC) | payer MEDICARE, OTHER ==
[~2021-12-01 07:54] MED LIST: Proparacaine 0.5% Ophth Soln 15 ML Bottle ONE
[2021-12-01] MEDS ORDERED: Dexamethasone 4 MG/ML SDV IV ONE (07:55)
[2021-12-01] MEDS ORDERED: Sodium Chloride 0.9% 10 ML Syringe IV ONE (07:55)
[2021-12-01] MEDS ORDERED: Midazolam 1 MG/ML 2 ML SDV IV ONE (07:55)
[2021-12-01] MEDS ORDERED: Acetaminophen 325 MG Tab PO PRN (08:00)
[2021-12-01] MEDS ORDERED: Acetaminophen/Codeine 300-30 MG Tab PO PRN (08:00)
[2021-12-01] MEDS ORDERED: Ondansetron 4 MG/2 ML SDV IVPUSH PRN (08:00)
[2021-12-01] MEDS: Proparacaine 0.5% Ophth Soln 15 ML Bottle EYELF ONE ×2 (08:31→09:22)
[2021-12-01] MEDS: Sodium Chloride 0.9% 10 ML Syringe FLUSH PRN (08:32)
[2021-12-01] MEDS: Povidone-Iodine 5% Sterile Ophth Soln 30 ML Bottle EYELF ONE ×2 (08:33→09:23)
[2021-12-01] MEDS: Tropicamide 1% Ophth Soln 15 ML Bottle EYELF ONE (08:34)
[2021-12-01] MEDS: Moxifloxacin 0.5% Ophth Soln 3 ML Bottle EYELF ONE (08:34)
[2021-12-01] MEDS: Timolol Maleate 0.5% Ophth Soln 5 ML Bottle EYELF ONE (08:35)
[2021-12-01] MEDS: Cataract Ophth Solution EYELF ONE (08:35)
[2021-12-01] MEDS: Phenylephrine 10% Ophth Soln 5 ML Bot EYELF PRN (08:35)
[2021-12-01] MEDS: Apraclonidine 0.5% Ophth Soln 5 ML Bot EYELF ONE (09:23)
[2021-12-01] MEDS: Diclofenac Sodium 0.1% Ophth Soln 5 ML Bottle EYELF ONE (09:23)
[2021-12-01] MEDS: Dexamethasone/Neomycin/Polymyxin B Ophth Oint 3.5 GM Tube EYELF ONE (09:24)
[2021-12-01] MEDS: Lidocaine 1% 5 ML VIAL ONE (09:24)
[2021-12-01] MEDS: Balanced Salt Solution Ophth Irrig 15 ML Bottle EYELF ONE (09:25)
[2021-12-01] MEDS: Vancomycin 500 MG SDV EYELF ONE (09:26)
[2021-12-01] MEDS: Chondroitin Sulfate/Hyaluronate Sodium Ophth Inj 0.5 ML Syringe IOCULAR ONE (09:26)
== END 2021-12-01 10:34 | disposition home or self-care (01) ==
LOC: DL.SDS 07:54
PROVIDERS: ATTEND Ophthalmology
DX: E11.36 Type 2 diabetes mellitus with diabetic cataract (principal); H25.812 Combined forms of age-related cataract, left eye; I10 Essential (primary) hypertension; J30.9 Allergic rhinitis, unspecified; L57.0 Actinic keratosis; K57.30 Diverticulosis of large intestine without perforation or abscess without bleeding; I08.3 Combined rheumatic disorders of mitral, aortic and tricuspid valves; I27.20 Pulmonary hypertension, unspecified; E78.5 Hyperlipidemia, unspecified; E03.9 Hypothyroidism, unspecified; K21.9 Gastro-esophageal reflux disease without esophagitis; F41.1 Generalized anxiety disorder; E66.09 Other obesity due to excess calories; Z68.32 Body mass index [BMI] 32.0-32.9, adult; Z88.8 Allergy status to other drugs, medicaments and biological substances; Z88.0 Allergy status to penicillin; Z88.1 Allergy status to other antibiotic agents; Z91.013 Allergy to seafood; Z79.84 Long term (current) use of oral hypoglycemic drugs; Z79.899 Other long term (current) drug therapy
CPT/HCPCS: 00142; A9270-GY; J1100; J2250; J3370; J3490; V2787-GY

== ENCOUNTER 2021-12-15 07:50 | Day surgery (SDC) | payer MEDICARE, OTHER ==
[2021-12-15] MEDS ORDERED: Dexamethasone 4 MG/ML SDV IV ONE (07:51)
[2021-12-15] MEDS ORDERED: Sodium Chloride 0.9% 10 ML Syringe IV ONE (07:51)
[2021-12-15] MEDS ORDERED: Midazolam 1 MG/ML 2 ML SDV IV ONE (07:51)
[2021-12-15] MEDS ORDERED: Proparacaine 0.5% Ophth Soln 15 ML Bottle EYERT ONE (08:00)
[2021-12-15] MEDS ORDERED: Sodium Chloride 0.9% 10 ML Syringe FLUSH PRN (08:00)
[2021-12-15] MEDS ORDERED: Moxifloxacin 0.5% Ophth Soln 3 ML Bottle EYERT ONE (08:00)
[2021-12-15] MEDS ORDERED: Povidone-Iodine 5% Sterile Ophth Soln 30 ML Bottle EYERT ONE ×2 (08:00→09:06)
[2021-12-15] MEDS ORDERED: Acetaminophen 325 MG Tab PO PRN (08:00)
[2021-12-15] MEDS ORDERED: Tropicamide 1% Ophth Soln 15 ML Bottle EYERT ONE (08:00)
[2021-12-15] MEDS ORDERED: Ondansetron 4 MG/2 ML SDV IVPUSH PRN (08:00)
[2021-12-15] MEDS ORDERED: Acetaminophen/Codeine 300-30 MG Tab PO PRN (08:00)
[2021-12-15] MEDS ORDERED: Cataract Ophth Solution EYERT ONE (08:00)
[2021-12-15] MEDS ORDERED: Phenylephrine 10% Ophth Soln 5 ML Bot EYERT PRN (08:00)
[2021-12-15] MEDS ORDERED: Tetracaine HCl/PF 0.5% 4 ML Bottle EYERT ONE (09:05)
[2021-12-15] MEDS ORDERED: Apraclonidine 0.5% Ophth Soln 5 ML Bot EYERT ONE ×2 (09:06)
[2021-12-15] MEDS ORDERED: Dexamethasone/Neomycin/Polymyxin B Ophth Oint 3.5 GM Tube EYERT ONE ×2 (09:07)
[2021-12-15] MEDS ORDERED: Diclofenac Sodium 0.1% Ophth Soln 5 ML Bottle EYERT ONE (09:07)
[2021-12-15] MEDS ORDERED: Lidocaine 1% 5 ML VIAL ONE ×2 (09:08)
[2021-12-15] MEDS ORDERED: Balanced Salt Solution Ophth Irrig 15 ML Bottle EYERT ONE ×2 (09:09)
[2021-12-15] MEDS ORDERED: Vancomycin 500 MG SDV EYERT ONE ×2 (09:11)
[2021-12-15] MEDS ORDERED: Chondroitin Sulfate/Hyaluronate Sodium Ophth Inj 0.5 ML Syringe EYERT ONE ×2 (09:12)
[2021-12-15] MEDS ORDERED: Timolol Maleate 0.5% Ophth Soln 5 ML Bottle EYERT ONE (13:36)
== END 2021-12-15 10:20 | disposition home or self-care (01) ==
LOC: DL.SDS 07:50
PROVIDERS: ATTEND Ophthalmology
DX: E11.36 Type 2 diabetes mellitus with diabetic cataract (principal); H25.811 Combined forms of age-related cataract, right eye; I10 Essential (primary) hypertension; E78.5 Hyperlipidemia, unspecified; K21.9 Gastro-esophageal reflux disease without esophagitis; N28.9 Disorder of kidney and ureter, unspecified; E03.9 Hypothyroidism, unspecified; E66.9 Obesity, unspecified; Z68.32 Body mass index [BMI] 32.0-32.9, adult; Z88.0 Allergy status to penicillin; Z91.013 Allergy to seafood; Z88.8 Allergy status to other drugs, medicaments and biological substances; Z79.84 Long term (current) use of oral hypoglycemic drugs; Z79.899 Other long term (current) drug therapy
CPT/HCPCS: 00142; 66982; A9270; J1100; J2250; J3370; J3490

== ENCOUNTER 2022-07-30 22:53 | Emergency (ER) | payer MEDICARE, OTHER ==
[2022-07-30] MEDS ORDERED: Aspirin 81 MG Tab.Chew PO ONE (23:01)
[2022-07-30 23:38] LABS: ANION GAP 15.3 mEq/L (7-13)
== END 2022-07-30 23:53 | disposition home or self-care (01) ==
LOC: DL.ED 22:53
DX: I49.3 Ventricular premature depolarization (principal); E03.9 Hypothyroidism, unspecified; I10 Essential (primary) hypertension; Z88.0 Allergy status to penicillin; Z91.013 Allergy to seafood; Z88.1 Allergy status to other antibiotic agents; Z88.8 Allergy status to other drugs, medicaments and biological substances; Z79.82 Long term (current) use of aspirin; Z79.4 Long term (current) use of insulin; Z79.899 Other long term (current) drug therapy
CPT/HCPCS: 36415; 71045; 80053; 83605; 84443; 84484; 85025; 85610; 93005; 93010; 99284; A9270-GY

== ENCOUNTER 2022-08-31 03:09 | Emergency (ER) | payer MEDICARE, OTHER ==
[2022-08-31] MEDS ORDERED: Ondansetron 4 MG/2 ML SDV IVPUSH ONE (03:45)
[2022-08-31 03:49] LABS: BASOPHILS PERCENT AUTO 0.4 % (0.0-1.0); HEMATOCRIT 49.5 % (40.0-54.0); HEMOGLOBIN 16.5 g/dL (14.0-18.0); LYMPHOCYTES PERCENT AUTO 27.9 % (20.5-50.1); MEAN CORPUSCULAR HEMOGLOBIN 30.4 pg (27.0-34.0); MEAN CORPUSCULAR HGB CONC 33.3 g/dL (33.0-35.0); MEAN CORPUSCULAR VOLUME 91.2 fL (80-100); MONOCYTES PERCENT AUTO 9.1 % (2-8); NEUTROPHILS PERCENT AUTO 60.6 % (42.2-75.2); PLATELET COUNT,PLT 175 10^3/uL (150-450); RED BLOOD CELL COUNT 5.43 10^6/uL (4.6-6.2); WHITE BLOOD CELL COUNT,WBC 9.3 10^3/uL (5.0-10.0)
[2022-08-31 04:20] LABS: LACTIC ACID 2.1 mmol/L (0.4-2.0)
[2022-08-31 04:24] LABS: APPEARANCE,URINE CLEAR (CLEAR); BILIRUBIN,URINE NEGATIVE (NEGATIVE); COLOR,URINE YELLOW (YELLOW); GLUCOSE,URINE 500 (NEGATIVE); KETONES,URINE NEGATIVE (NEGATIVE); LEUKOCYTE ESTERASE,URINE NEGATIVE (NEGATIVE); NITRITE,URINE NEGATIVE (NEGATIVE); OCCULT BLOOD,URINE MODERATE (NEGATIVE); PROTEIN,URINE 100 (NEGATIVE); UROBILINOGEN,URINE 0.2 mg/dL (0.2-1.0)
[2022-08-31 04:25] LABS: A/G RATIO 1.1; ALANINE AMINOTRANSFERASE,ALT 35 U/L (16-63); ALBUMIN 3.9 g/dL (3.4-5.0); ALKALINE PHOSPHATASE 65 U/L (46-116); ANION GAP 14.4 mEq/L (7-13); ASPARTATE AMNIOTRANSFERASE,AST 31 U/L (15-37); BLOOD UREA NITROGEN,BUN 27 mg/dL (7-18); BUN/CREATININE RATIO 18.6 (No establ ref range); CARBON DIOXIDE,CO2 26 mmol/L (21-32); CHLORIDE,CL 107 mmol/L (98-107); CREATININE 1.45 mg/dL (0.70-1.30); EST CRCL DRUG DOSING (CG) 45.34 mL/min; GLUCOSE RANDOM 150 mg/dL (70-99); POTASSIUM,K 4.4 mmol/L (3.5-5.1); PROTEIN TOTAL,TP 7.3 g/dL (6.4-8.2); PTT,PARTIAL THROMBOPLSTIN TIME 22.1 SEC (22.0-34.0); SODIUM,NA 143 mmol/L (136-145); TSH ULTRASENSITIVE 1.54 uIU/mL (0.36-3.74)
[2022-08-31 04:26] LABS: AMPHETAMINES,URINE NEGATIVE (NEGATIVE); BARBITURATES,URINE NEGATIVE (NEGATIVE); BENZODIAZEPINE,URINE NEGATIVE (NEGATIVE); MDMA (ECSTASY), URINE NEGATIVE (NEGATIVE); METHADONE,URINE NEGATIVE (NEGATIVE); METHAMPHETAMINES,URINE NEGATIVE (NEGATIVE); OPIATES,URINE NEGATIVE (NEGATIVE); OXYCODONE,URINE NEGATIVE (NEGATIVE); PHENCYCLIDINE,URINE NEGATIVE (NEGATIVE); TCA,URINE NEGATIVE (NEGATIVE)
[2022-08-31 04:28] LABS: C-REACTIVE PROTEIN < 0.2 mg/dL (0.0-0.9); ESTIMATED GFR 49 mL/min (>=60)
[2022-08-31] MEDS ORDERED: Meclizine 12.5 MG Tab PO ONE (04:39)
[2022-08-31 04:42] LABS: BACTERIA,URINE NOT SEEN /HPF (0-FEW/HPF); EPITHELIAL CELLS,URINE RARE /HPF (NOT SEEN); FINE GRANULAR CASTS,URINE RARE /LPF (NOT SEEN); WBC,URINE 0-5 /HPF (0-5/HPF)
== END 2022-08-31 05:58 | disposition home or self-care (01) ==
LOC: DL.ED 03:09
DX: R42 Dizziness and giddiness (principal); R01.1 Cardiac murmur, unspecified; H11.31 Conjunctival hemorrhage, right eye; H73.892 Other specified disorders of tympanic membrane, left ear; I10 Essential (primary) hypertension; E11.9 Type 2 diabetes mellitus without complications; Z88.0 Allergy status to penicillin; Z88.8 Allergy status to other drugs, medicaments and biological substances; Z91.013 Allergy to seafood; Z79.4 Long term (current) use of insulin; Z79.82 Long term (current) use of aspirin; Z87.891 Personal history of nicotine dependence; Z20.822 Contact with and (suspected) exposure to COVID-19
CPT/HCPCS: 36415; 70450; 80053; 80305; 81001; 83605; 83735; 84443; 84484; 85025; 85610; 85730; 86140; 93005; 93010; 96374; 99284; A9270; J2405; U0002

== ENCOUNTER 2023-01-25 12:15 | Emergency (ER) | payer MEDICARE, OTHER ==
[2023-01-25] MEDS ORDERED: Ketorolac 30 MG/ML SDV IVPUSH ONE (12:40)
[2023-01-25] MEDS ORDERED: Promethazine 25 MG/ML SDV IM ONE (12:41)
[2023-01-25] MEDS ORDERED: Sodium Chloride 0.9% 1,000 ML IV ONE (12:41)
[2023-01-25 13:36] LABS: BASOPHILS PERCENT AUTO 0.2 % (0.0-1.0); EOSINOPHILS PERCENT AUTO 0.6 % (1.0-3.0); HEMATOCRIT 53.3 % (40.0-54.0); HEMOGLOBIN 18.3 g/dL (14.0-18.0); LYMPHOCYTES PERCENT AUTO 19.1 % (20.5-50.1); MEAN CORPUSCULAR HEMOGLOBIN 31.4 pg (27.0-34.0); MEAN CORPUSCULAR HGB CONC 34.3 g/dL (33.0-35.0); MEAN CORPUSCULAR VOLUME 91.6 fL (80-100); MONOCYTES PERCENT AUTO 5.9 % (2-8); NEUTROPHILS PERCENT AUTO 74.2 % (42.2-75.2); PLATELET COUNT,PLT 176 10^3/uL (150-450); RED BLOOD CELL COUNT 5.82 10^6/uL (4.6-6.2); WHITE BLOOD CELL COUNT,WBC 8.3 10^3/uL (5.0-10.0)
[2023-01-25 13:46] LABS: A/G RATIO 1.1; ALBUMIN 4.2 g/dL (3.4-5.0); ANION GAP 16.1 mEq/L (7-13); BILIRUBIN TOTAL 1.1 mg/dL (0.2-1.0); BUN/CREATININE RATIO 16.6 (No establ ref range); CALCIUM 9.6 mg/dL (8.5-10.1); CREATININE 1.57 mg/dL (0.70-1.30); EST CRCL DRUG DOSING (CG) 44.36 mL/min; MAGNESIUM 1.8 mg/dL (1.8-2.4); POTASSIUM,K 5.1 mmol/L (3.5-5.1); PROTEIN TOTAL,TP 8.1 g/dL (6.4-8.2)
== END 2023-01-25 14:20 | disposition home or self-care (01) ==
LOC: DL.ED 12:15
DX: R42 Dizziness and giddiness (principal); E03.9 Hypothyroidism, unspecified; E11.9 Type 2 diabetes mellitus without complications; I10 Essential (primary) hypertension; Z88.1 Allergy status to other antibiotic agents; Z88.0 Allergy status to penicillin; Z91.013 Allergy to seafood; Z88.8 Allergy status to other drugs, medicaments and biological substances; Z79.82 Long term (current) use of aspirin; Z79.899 Other long term (current) drug therapy; Z79.4 Long term (current) use of insulin
CPT/HCPCS: 36415; 80053; 83735; 85025; 96361; 96372; 96374; 99284; J1885; J2550; J7030

== ENCOUNTER 2023-01-30 15:30 | Emergency (ER) | payer MEDICARE, OTHER ==
[2023-01-30] MEDS ORDERED: Ondansetron 4 MG/2 ML SDV IVPUSH ONE (17:13)
[2023-01-30] MEDS ORDERED: Promethazine 25 MG/ML SDV IM ONE (17:13)
== END 2023-01-30 18:55 | disposition home or self-care (01) ==
LOC: DL.ED 15:30
DX: H81.09 Meniere's disease, unspecified ear (principal); R11.2 Nausea with vomiting, unspecified; E11.9 Type 2 diabetes mellitus without complications; E03.9 Hypothyroidism, unspecified; I10 Essential (primary) hypertension; Z88.8 Allergy status to other drugs, medicaments and biological substances; Z88.0 Allergy status to penicillin; Z91.013 Allergy to seafood; Z79.82 Long term (current) use of aspirin; Z79.84 Long term (current) use of oral hypoglycemic drugs; Z79.4 Long term (current) use of insulin; Z79.899 Other long term (current) drug therapy
CPT/HCPCS: 96372; 96374; 99283; J2405; J2550

== ENCOUNTER 2024-02-08 05:47 | Day surgery (SDC) | payer MEDICARE, OTHER ==
[2024-02-08] MEDS: Dextrose 5%-0.45% NaCl 1,000 ML IV SCH (06:13)
[2024-02-08] MEDS ORDERED: Midazolam 1 MG/ML 2 ML SDV ONE (06:31)
[2024-02-08] MEDS ORDERED: fentaNYL 100 MCG/2 ML SDV ONE (06:31)
[2024-02-08] MEDS: fentaNYL 100 MCG/2 ML SDV IV ONE ×3 (07:07→07:12)
[2024-02-08] MEDS: Midazolam 1 MG/ML 2 ML SDV IV ONE ×4 (07:08→07:17)
== END 2024-02-08 08:36 | disposition home or self-care (01) ==
LOC: DL.ENDO 05:47
PROVIDERS: ATTEND Internal Medicine Gastroenterology
DX: K57.30 Diverticulosis of large intestine without perforation or abscess without bleeding (principal); I12.9 Hypertensive chronic kidney disease with stage 1 through stage 4 chronic kidney disease, or unspecified chronic kidney disease; N18.30 Chronic kidney disease, stage 3 unspecified; Z79.899 Other long term (current) drug therapy
CPT/HCPCS: 45380; 82947; J2250; J3010; J7799

== ENCOUNTER 2024-03-05 08:36 | Emergency (ER) | payer MEDICARE, OTHER ==
[2024-03-05 09:32] LABS: BASOPHILS PERCENT AUTO 0.6 % (0.0-1.0); EOSINOPHILS PERCENT AUTO 2.7 % (1.0-3.0); HEMATOCRIT 44.2 % (40.0-54.0); HEMOGLOBIN 14.8 g/dL (14.0-18.0); LYMPHOCYTES PERCENT AUTO 16.9 % (20.5-50.1); MEAN CORPUSCULAR HEMOGLOBIN 31.2 pg (27.0-34.0); MEAN CORPUSCULAR HGB CONC 33.5 g/dL (33.0-35.0); MEAN CORPUSCULAR VOLUME 93.1 fL (80-100); MONOCYTES PERCENT AUTO 6.3 % (2-8); NEUTROPHILS PERCENT AUTO 73.5 % (42.2-75.2); PLATELET COUNT,PLT 169 10^3/uL (150-450); RED BLOOD CELL COUNT 4.75 10^6/uL (4.6-6.2); WHITE BLOOD CELL COUNT,WBC 5.1 10^3/uL (5.0-10.0)
[2024-03-05 09:55] LABS: A/G RATIO 1.1; ALBUMIN 3.7 g/dL (3.4-5.0); ANION GAP 13.2 mEq/L (7-13); BUN/CREATININE RATIO 13.3 (No establ ref range); CALCIUM 9.4 mg/dL (8.5-10.1); CREATININE 1.65 mg/dL (0.70-1.30); EST CRCL DRUG DOSING (CG) 39.19 mL/min; POTASSIUM,K 4.2 mmol/L (3.5-5.1)
[2024-03-05] MEDS: Sodium Chloride 0.9% 1,000 ML IV ONE (10:40)
== END 2024-03-05 11:02 | disposition home or self-care (01) ==
LOC: DL.ED 08:36
DX: H81.10 Benign paroxysmal vertigo, unspecified ear (principal); B37.9 Candidiasis, unspecified; I12.9 Hypertensive chronic kidney disease with stage 1 through stage 4 chronic kidney disease, or unspecified chronic kidney disease; N18.9 Chronic kidney disease, unspecified; K21.9 Gastro-esophageal reflux disease without esophagitis; E11.22 Type 2 diabetes mellitus with diabetic chronic kidney disease; E03.9 Hypothyroidism, unspecified; Z90.49 Acquired absence of other specified parts of digestive tract; Z88.0 Allergy status to penicillin; Z88.8 Allergy status to other drugs, medicaments and biological substances; Z91.013 Allergy to seafood; Z79.82 Long term (current) use of aspirin; Z79.4 Long term (current) use of insulin; Z79.890 Hormone replacement therapy; Z79.84 Long term (current) use of oral hypoglycemic drugs; Z79.899 Other long term (current) drug therapy
CPT/HCPCS: 36415; 70450; 80053; 83735; 84484; 85025; 93005; 99284

== ENCOUNTER 2024-08-10 10:57 | Emergency (ER) | payer MEDICARE, OTHER ==
[2024-08-10 11:02] LABS: BASOPHILS PERCENT AUTO 0.3 % (0.0-1.0); EOSINOPHILS PERCENT AUTO 3.7 % (1.0-3.0); HEMATOCRIT 43.4 % (40.0-54.0); HEMOGLOBIN 14.2 g/dL (14.0-18.0); MEAN CORPUSCULAR HEMOGLOBIN 30.3 pg (27.0-34.0); MEAN CORPUSCULAR HGB CONC 32.7 g/dL (33.0-35.0); MEAN CORPUSCULAR VOLUME 92.5 fL (80-100); PLATELET COUNT,PLT 121 10^3/uL (150-450); RED BLOOD CELL COUNT 4.69 10^6/uL (4.6-6.2); WHITE BLOOD CELL COUNT,WBC 6.4 10^3/uL (5.0-10.0)
[2024-08-10] MEDS: Lactated Ringers 1,000 ML IV ONE (11:09)
[2024-08-10] MEDS: Ondansetron 4 MG/2 ML SDV IVPUSH ONE (11:23)
[2024-08-10 11:24] LABS: A/G RATIO 1.1; ALBUMIN 3.7 g/dL (3.4-5.0); ANION GAP 13.8 mEq/L (7-13); BILIRUBIN TOTAL 1.1 mg/dL (0.2-1.0); BUN/CREATININE RATIO 13.3 (No establ ref range); CALCIUM 9.3 mg/dL (8.5-10.1); CREATININE 1.73 mg/dL (0.70-1.30); EST CRCL DRUG DOSING (CG) 36.76 mL/min; MAGNESIUM 2.1 mg/dL (1.8-2.4); POTASSIUM,K 4.8 mmol/L (3.5-5.1); PROTEIN TOTAL,TP 7.1 g/dL (6.4-8.2)
[2024-08-10 11:28] LABS: LACTIC ACID 1.7 mmol/L (0.4-2.0)
[2024-08-10 12:00] LABS: APPEARANCE,URINE CLEAR (CLEAR); BILIRUBIN,URINE NEGATIVE (NEGATIVE); COLOR,URINE YELLOW (YELLOW); GLUCOSE,URINE >=1000 (NEGATIVE); KETONES,URINE NEGATIVE (NEGATIVE); LEUKOCYTE ESTERASE,URINE NEGATIVE (NEGATIVE); NITRITE,URINE NEGATIVE (NEGATIVE); OCCULT BLOOD,URINE NEGATIVE (NEGATIVE); PH,URINE 5.5 (5.0-9.0); PROTEIN,URINE 30 (NEGATIVE); UROBILINOGEN,URINE 0.2 mg/dL (0.2-1.0)
[2024-08-10 12:08] LABS: AMORPHOUS SEDIMENT,URINE RARE /HPF (NOT SEEN); BACTERIA,URINE RARE /HPF (0-FEW/HPF); EPITHELIAL CELLS,URINE FEW /HPF (NOT SEEN); MUCUS,URINE RARE /LPF (NOT SEEN); RBC,URINE 0-5 /HPF (0-5); WBC,URINE 0-5 /HPF (0-5/HPF)
[2024-08-10] MEDS: Take Home: Ondansetron 4 MG Tab.DIS, 5 Tab Pack PO ONE (12:28)
== END 2024-08-10 12:41 | disposition home or self-care (01) ==
LOC: DL.ED 10:57
DX: R11.2 Nausea with vomiting, unspecified (principal); R42 Dizziness and giddiness; I10 Essential (primary) hypertension; E03.9 Hypothyroidism, unspecified; E11.9 Type 2 diabetes mellitus without complications; Z88.0 Allergy status to penicillin; Z88.1 Allergy status to other antibiotic agents; Z88.8 Allergy status to other drugs, medicaments and biological substances; Z91.013 Allergy to seafood; Z79.82 Long term (current) use of aspirin; Z79.4 Long term (current) use of insulin; Z79.890 Hormone replacement therapy; Z79.899 Other long term (current) drug therapy; Z90.49 Acquired absence of other specified parts of digestive tract
CPT/HCPCS: 36415; 71045; 80053; 81001; 83605; 83735; 84484; 85025; 93005; 93010; 96361; 96374; 99284; 99285; J2405; J7120; Q0162

== ENCOUNTER 2024-08-12 11:22 | Emergency (ER) | payer MEDICARE, OTHER ==
[2024-08-12] MEDS: Promethazine 25 MG/ML SDV IM ONE (12:19)
[2024-08-12] MEDS: Orphenadrine 60 MG/2 ML Inj IM ONE (12:19)
== END 2024-08-12 13:04 | disposition home or self-care (01) ==
LOC: DL.ED 11:22
DX: R42 Dizziness and giddiness (principal); R11.2 Nausea with vomiting, unspecified; I12.9 Hypertensive chronic kidney disease with stage 1 through stage 4 chronic kidney disease, or unspecified chronic kidney disease; E11.22 Type 2 diabetes mellitus with diabetic chronic kidney disease; E03.9 Hypothyroidism, unspecified; Z88.0 Allergy status to penicillin; N18.9 Chronic kidney disease, unspecified; Z88.8 Allergy status to other drugs, medicaments and biological substances; Z91.013 Allergy to seafood; Z79.82 Long term (current) use of aspirin; Z79.899 Other long term (current) drug therapy; Z79.890 Hormone replacement therapy; Z79.02 Long term (current) use of antithrombotics/antiplatelets; Z79.4 Long term (current) use of insulin; Z79.84 Long term (current) use of oral hypoglycemic drugs; Z79.811 Long term (current) use of aromatase inhibitors; Z90.49 Acquired absence of other specified parts of digestive tract
CPT/HCPCS: 96372; 99283; 99284; J2360; J2550

== ENCOUNTER 2024-08-15 05:31 | Inpatient (IN) | payer MEDICARE, OTHER ==
[2024-08-15] MEDS: Ondansetron 4 MG/2 ML SDV IVPUSH ONE (06:08)
[2024-08-15 06:10] LABS: BASOPHILS PERCENT AUTO 0.1 % (0.0-1.0); EOSINOPHILS PERCENT AUTO 0.1 % (1.0-3.0); HEMATOCRIT 45.6 % (40.0-54.0); HEMOGLOBIN 14.6 g/dL (14.0-18.0); LYMPHOCYTES PERCENT AUTO 7.3 % (20.5-50.1); MEAN CORPUSCULAR HEMOGLOBIN 29.7 pg (27.0-34.0); MEAN CORPUSCULAR VOLUME 92.9 fL (80-100); MONOCYTES PERCENT AUTO 6.4 % (2-8); NEUTROPHILS PERCENT AUTO 86.1 % (42.2-75.2); PLATELET COUNT,PLT 122 10^3/uL (150-450); RED BLOOD CELL COUNT 4.91 10^6/uL (4.6-6.2); WHITE BLOOD CELL COUNT,WBC 6.7 10^3/uL (5.0-10.0)
[2024-08-15 06:32] LABS: A/G RATIO 0.9; ALBUMIN 3.6 g/dL (3.4-5.0); ANION GAP 15.3 mEq/L (7-13); BILIRUBIN TOTAL 1.3 mg/dL (0.2-1.0); BUN/CREATININE RATIO 13.8 (No establ ref range); CALCIUM 8.9 mg/dL (8.5-10.1); CREATININE 1.89 mg/dL (0.70-1.30); EST CRCL DRUG DOSING (CG) 33.64 mL/min; MAGNESIUM 1.8 mg/dL (1.8-2.4); POTASSIUM,K 4.3 mmol/L (3.5-5.1); PROTEIN TOTAL,TP 7.4 g/dL (6.4-8.2)
[2024-08-15 06:33] LABS: LACTIC ACID 1.6 mmol/L (0.4-2.0)
[2024-08-15] MEDS: Albuterol/Ipratropium 3.0-0.5 MG/3 ML Neb Soln NEB ONE (07:01)
[2024-08-15] MEDS: Sodium Chloride 0.9% 1,000 ML IV ONE (08:52)
[2024-08-15] MEDS: Azithromycin 500 MG in Sodium Chloride 0.9% 250 ML IV ONE (09:27)
[2024-08-15] MEDS: cefTRIAXone 2 GM Vial IVPUSH ONE (09:27)
[2024-08-15] MEDS ORDERED: 50% Dextrose in Water 50 ML Syringe IVPUSH PRN (16:01)
[2024-08-15] MEDS ORDERED: Glucagon,Human Recombinant 1 MG Vial IM PRN (16:01)
[2024-08-15] MEDS: Aspirin 81 MG Tab.Chew PO SCH (16:10)
[2024-08-15] MEDS: Sertraline 50 MG Tab PO SCH (16:10)
[2024-08-15] MEDS: Cefdinir 300 MG Cap PO SCH (16:12)
[2024-08-15 16:47] LABS: T4 FREE 0.97 ng/dL (0.76-1.46); TSH ULTRASENSITIVE 3.92 uIU/mL (0.36-3.74)
[2024-08-15] MEDS: Insulin Lispro 100 Units/ML 3 ML Vial SUBCUT SCH (18:10)
[2024-08-15] MEDS: Insulin Glarg,Human.Rec.Analog 100 Unit/ML 10 ML Vial SUBCUT SCH (21:01)
[2024-08-15] MEDS: Tamsulosin 0.4 MG Cap.ER PO SCH (21:03)
[2024-08-15] MEDS: Metoprolol Tartrate 50 MG Tab PO SCH (21:04)
[2024-08-15] MEDS: Magnesium Oxide 400 MG Tab PO SCH (21:04)
[2024-08-16] MEDS: Levothyroxine 25 MCG Tab PO SCH (05:42)
[2024-08-16] MEDS: Levothyroxine 125 MCG Tab PO SCH (05:43)
[2024-08-16] MEDS: Glimepiride 2 MG Tab PO SCH (05:43)
[2024-08-16 06:41] LABS: BASOPHILS PERCENT AUTO 0.1 % (0.0-1.0); HEMATOCRIT 40.2 % (40.0-54.0); HEMOGLOBIN 13.1 g/dL (14.0-18.0); LYMPHOCYTES PERCENT AUTO 7.9 % (20.5-50.1); MEAN CORPUSCULAR HEMOGLOBIN 30.8 pg (27.0-34.0); MEAN CORPUSCULAR HGB CONC 32.6 g/dL (33.0-35.0); MEAN CORPUSCULAR VOLUME 94.4 fL (80-100); MONOCYTES PERCENT AUTO 6.4 % (2-8); NEUTROPHILS PERCENT AUTO 84.6 % (42.2-75.2); PLATELET COUNT,PLT 104 10^3/uL (150-450); RED BLOOD CELL COUNT 4.26 10^6/uL (4.6-6.2); WHITE BLOOD CELL COUNT,WBC 7.4 10^3/uL (5.0-10.0)
[2024-08-16 06:55] LABS: CALCIUM 8.6 mg/dL (8.5-10.1); CREATININE 1.57 mg/dL (0.70-1.30); EST CRCL DRUG DOSING (CG) 41.7 mL/min
[2024-08-16] MEDS: Azithromycin 250 MG Tab PO SCH (08:09)
[2024-08-16] MEDS ORDERED: Azithromycin 250 MG Tab PO SCH (09:00)
[2024-08-16] MEDS: Furosemide 40 MG/4 ML VIAL IVPUSH ONE (11:45)
[2024-08-17 06:35] LABS: BASOPHILS PERCENT AUTO 0.2 % (0.0-1.0); EOSINOPHILS PERCENT AUTO 1.8 % (1.0-3.0); HEMATOCRIT 41.8 % (40.0-54.0); HEMOGLOBIN 13.6 g/dL (14.0-18.0); LYMPHOCYTES PERCENT AUTO 9.4 % (20.5-50.1); MEAN CORPUSCULAR HEMOGLOBIN 30.4 pg (27.0-34.0); MEAN CORPUSCULAR HGB CONC 32.5 g/dL (33.0-35.0); MEAN CORPUSCULAR VOLUME 93.5 fL (80-100); MONOCYTES PERCENT AUTO 6.5 % (2-8); NEUTROPHILS PERCENT AUTO 82.1 % (42.2-75.2); PLATELET COUNT,PLT 122 10^3/uL (150-450); RED BLOOD CELL COUNT 4.47 10^6/uL (4.6-6.2); WHITE BLOOD CELL COUNT,WBC 6.2 10^3/uL (5.0-10.0)
[2024-08-17 06:52] LABS: CALCIUM 8.9 mg/dL (8.5-10.1); CREATININE 1.46 mg/dL (0.70-1.30); EST CRCL DRUG DOSING (CG) 44.84 mL/min; MAGNESIUM 2.2 mg/dL (1.8-2.4)
[2024-08-17] MEDS ORDERED: Glucagon,Human Recombinant 1 MG Vial IM PRN (09:54)
[2024-08-17] MEDS ORDERED: 50% Dextrose in Water 50 ML Syringe IVPUSH PRN (09:54)
[2024-08-17] MEDS: Furosemide 40 MG/4 ML VIAL IVPUSH ONE (11:03)
[2024-08-17] MEDS: Insulin Glarg,Human.Rec.Analog 100 Unit/ML 10 ML Vial SUBCUT SCH (20:22)
[2024-08-17] MEDS: Codeine/guaiFENesin 10-100 MG/5 ML Syrup 5 ML Cup PO PRN (20:29)
[2024-08-17] MEDS: Ondansetron 4 MG/2 ML SDV IVPUSH PRN (20:29)
[2024-08-18 06:50] LABS: BASOPHILS PERCENT AUTO 0.2 % (0.0-1.0); EOSINOPHILS PERCENT AUTO 4.3 % (1.0-3.0); HEMATOCRIT 45.3 % (40.0-54.0); HEMOGLOBIN 14.8 g/dL (14.0-18.0); LYMPHOCYTES PERCENT AUTO 15.1 % (20.5-50.1); MEAN CORPUSCULAR HEMOGLOBIN 30.3 pg (27.0-34.0); MEAN CORPUSCULAR HGB CONC 32.7 g/dL (33.0-35.0); MEAN CORPUSCULAR VOLUME 92.8 fL (80-100); MONOCYTES PERCENT AUTO 10.9 % (2-8); NEUTROPHILS PERCENT AUTO 69.5 % (42.2-75.2); PLATELET COUNT,PLT 148 10^3/uL (150-450); RED BLOOD CELL COUNT 4.88 10^6/uL (4.6-6.2); WHITE BLOOD CELL COUNT,WBC 5.6 10^3/uL (5.0-10.0)
[2024-08-18 06:59] LABS: ANION GAP 11.7 mEq/L (7-13); CALCIUM 9.1 mg/dL (8.5-10.1); CREATININE 1.53 mg/dL (0.70-1.30); EST CRCL DRUG DOSING (CG) 42.79 mL/min; POTASSIUM,K 4.7 mmol/L (3.5-5.1)
[2024-08-18] MEDS: Fluconazole 100 MG Tab PO SCH (11:37)
[2024-08-18] MEDS: Furosemide 40 MG/4 ML VIAL IVPUSH ONE (11:38)
[2024-08-19 05:42] LABS: MYCOPLASMA IGM 0.04 U/L (<=0.76)
[2024-08-19 07:21] LABS: ANION GAP 8.6 mEq/L (7-13); CALCIUM 9.1 mg/dL (8.5-10.1); CREATININE 1.58 mg/dL (0.70-1.30); EST CRCL DRUG DOSING (CG) 41.44 mL/min; POTASSIUM,K 4.6 mmol/L (3.5-5.1)
== END 2024-08-19 12:10 | disposition home or self-care (01) | DRG 291 ==
LOC: DL.ED 05:31 → DL.MS 12:12
PROVIDERS: ADMIT Internal Medicine; ATTEND Internal Medicine
DX: R09.02 Hypoxemia (principal); I50.31 Acute diastolic (congestive) heart failure; N17.9 Acute kidney failure, unspecified; H26.9 Unspecified cataract; H54.7 Unspecified visual loss; H91.90 Unspecified hearing loss, unspecified ear; E78.00 Pure hypercholesterolemia, unspecified; K21.9 Gastro-esophageal reflux disease without esophagitis; K58.9 Irritable bowel syndrome, unspecified; F41.9 Anxiety disorder, unspecified; E11.9 Type 2 diabetes mellitus without complications; E03.9 Hypothyroidism, unspecified; B37.9 Candidiasis, unspecified; E86.0 Dehydration; N40.0 Benign prostatic hyperplasia without lower urinary tract symptoms; D69.6 Thrombocytopenia, unspecified; I12.9 Hypertensive chronic kidney disease with stage 1 through stage 4 chronic kidney disease, or unspecified chronic kidney disease; I11.0 Hypertensive heart disease with heart failure; Z87.19 Personal history of other diseases of the digestive system; E11.22 Type 2 diabetes mellitus with diabetic chronic kidney disease; N18.9 Chronic kidney disease, unspecified; Z90.49 Acquired absence of other specified parts of digestive tract; Z79.890 Hormone replacement therapy; Z98.49 Cataract extraction status, unspecified eye; Z79.899 Other long term (current) drug therapy; Z98.890 Other specified postprocedural states; Z87.891 Personal history of nicotine dependence; Z79.84 Long term (current) use of oral hypoglycemic drugs; Z79.82 Long term (current) use of aspirin; Z79.4 Long term (current) use of insulin; Z91.013 Allergy to seafood; Z88.8 Allergy status to other drugs, medicaments and biological substances; Z88.0 Allergy status to penicillin; Z88.1 Allergy status to other antibiotic agents
CPT/HCPCS: 36415; 71045; 71275; 80053; 83605; 83735; 83880; 84145; 84439; 84443; 84484; 85025; 85379; 86738; 87428; 93005; 93010; 94640; 96365; 96375; 99285 ×2; A9270; J0456; J0696; J2405; J7030; J7050; 51702; 80048; 82947; 87070; 87205; 87899; 93306; 94010; 94667; 97161-GP; 97165-GO; 99223; 99232; 99233; 99239; J1815-GY; J1938